=== PATIENT | female | born 1960 | race Caucasian/White ===

== ENCOUNTER 2017-07-19 09:58 | Emergency (ER) | payer BC, SELFPAY ==
[2017-07-19 09:59] VITALS: BP 133/81; PULSE 77; RESP 16; TEMP 36.7; O2SAT 100; BMI 21.7
--- NOTE | 2017-07-19 10:10 | RAD_ITS ---
STUDY: X-RAY - PELVIS AND LEFT HIP REASON FOR EXAM: Female, 57 years old. Fall, pain TECHNIQUE: Radiological exam, hip, unilateral, with pelvis when performed; 2 or 3 views. COMPARISON: None. FINDINGS: There is a non-specific bowel gas pattern. Normal visualized soft tissue structures. Normal bilateral iliac wings, sacroiliac joints and visualized sacrum. Normal bilateral superior and inferior pubic rami. Normal pubic symphysis. Normal bilateral ischial tuberosities. Normal visualized femoral head. Normal acetabulum. Normal hip joint. RAD/Hip 2-3 Views with Pelvis IMPRESSION: Normal x-ray examination of the pelvis and hip. No fracture or dislocation. Electronically Signed: Christopher Angela DO at 10:35 EDT , Service support ,
--- NOTE | 2017-07-19 10:10 | CT_ITS ---
STUDY: CT BRAIN WITHOUT CONTRAST REASON FOR EXAM: Female, 57 years old. Fall, headache RADIATION DOSAGE (If Supplied By Facility): CTDIvol = ( 44.99 ) mGy, DLP = ( 779.24 ) mGycm TECHNIQUE: Transaxial CT imaging of the brain was performed without administration of intravenous contrast material. Coronal and sagittal images are reformatted. Individualized dose optimization techniques were used for this CT. COMPARISON: None. FINDINGS: Normal soft tissue structures. Normal calvarium. Normal size ventricles and extra-axial spaces for the patient's age. Normal white matter tracts of the cerebral hemispheres. Normal basal ganglia and thalami. Normal brainstem. Normal cerebellum. There is no intracranial hemorrhage. There are no findings of an acute ischemic infarction. Normal visualized paranasal sinuses. CT/Brain/Head without Contrast IMPRESSION: Normal unenhanced CT scan of the brain. No acute intracranial process. Electronically Signed: Christopher Angela DO at 10:41 EDT , Service support ,
--- NOTE | 2017-07-19 10:11 | CT_ITS ---
STUDY: CT CERVICAL SPINE WITHOUT CONTRAST REASON FOR EXAM: Female, 57 years old. Fall RADIATION DOSAGE (If Supplied By Facility): CTDIvol = ( 14.67 ) mGy, DLP = ( 359.99 ) mGycm TECHNIQUE: High resolution transaxial imaging was performed without contrast material. Sagittal and coronal images were reconstructed. Individualized dose optimization techniques were used for this CT. COMPARISON: None FINDINGS: Normal craniovertebral junction. Normal anterior atlantoaxial articulation. Normal odontoid process. Normal cervical lordosis. Normal vertebral bodies and posterior osseous elements. C2-3: Normal endplates. Normal disc height and morphology. Normal central canal and intervertebral neuroforamina. C3-4: Normal endplates. Normal disc height and morphology. Normal central canal and intervertebral neuroforamina. C4-5: Normal endplates. Normal disc height and morphology. Normal central canal and intervertebral neuroforamina. C5-6: Normal endplates. Normal disc height and morphology. Normal central canal and intervertebral neuroforamina. C6-7: Normal endplates. Normal disc height and morphology. Normal central canal and intervertebral neuroforamina. C7-T1: Normal endplates. Normal disc height and morphology. Normal central canal and intervertebral neuroforamina. Normal visualized soft tissue structures. CT/Spine Cervical without Contras IMPRESSION: Normal unenhanced CT examination of the cervical spine. No fracture. Electronically Signed: Christopher Angela DO at 10:42 EDT , Service support ,
--- NOTE | 2017-07-19 10:11 | VDLE_ITS ---
Reason For Study: LLE EDEMA RIGHT LEFT CFV is compressible, spontaneous, phasic, GSV is normal. competent and demonstrates normal CFV is compressible, spontaneous, phasic, augmentation. competent, and demonstrates normal Procedure augmentation. Exam performed portable in ED. FV is compressible, spontaneous, phasic, The exam was diagnostic. competent and demonstrates normal A preliminary report was called and/or faxed augmentation. to Dr. Montes De Oca & ED @ 11:00 am. POP V is compressible, spontaneous, phasic, competent and demonstrates normal augmentation. T/P Trunk is compressible. PTV is compressible. LT PerV is compressible. Interpretation Summary There is no evidence of left lower extremity deep vein thrombosis. Left greater saphenous vein appears patent and compressible segmentally. Normal flow patterns right common femoral vein. Ordering Physician: Sharath Moran Referring Physician: ABI Mathis M.D. Performed By: Ioana Benavides RDCS, RVT
--- NOTE | 2017-07-19 11:17 | ED.DCSUM_ITS ---
- ER Visit Summary Date of Service: 07/19/17 Chief Complaint: She presents with headache for 2 weeks since she fell getting out of her hot tub while wrapped in a towel and basically landed on her left side. She had the left side of her head on the ground. She did not lose consciousness. She has had mild left-sided headache since that time and mild left-sided neck pain. She developed significant ecchymosis of her left hip and was worried about a blood clot. She has had occasional left chest wall discomfort with certain movements or with palpation and she believes this is from where her elbow struck her left chest wall. No exertional chest pain, dyspnea, or diaphoresis. No pleuritic chest pain. Calf pain or swelling. History of Present Illness: The patient is a 57 F [] Physical Examination: He has periorbital ecchymosis on the left but no bony tenderness or instability on palpation of her facial bones. No crepitus. No pain with eye movement. No entrapment. Vision is normal. Minimal paraspinal tenderness on the left cervical region but no midline tenderness. She still has full range of motion. Heart tones are regular and without murmur. Lungs are clear bilaterally with good air movement. Minimal chest wall tenderness on the left but overlying skin looks normal. No abdominal tenderness and specifically no left upper quadrant tenderness. No back tenderness on palpation. She did strike her left elbow on the ground as well but she has no bony tenderness there and still has full range of motion. She has significant ecchymosis over the left hip extending to the mid thigh laterally but her compartments are soft. No ecchymosis distal to the knee. No tenderness along the medial lower extremity or tenderness along the venous system. No palpable cords. Strong distal pulses. Test Results: Emergency Department Course and Treatment: CT head and cervical spine both negative for acute process. Left hip plain films negative for acute fracture. She can walk without difficulty. I do not suspect occult hip fracture and do not feel that she needs an MRI or CT scan at this time. She was concerned about DVT in her left leg because of the swelling and ecchymosis. An ultrasound was negative for DVT. She has no chest pain or tachycardia but she does have mild tenderness on the left ribs laterally. The skin is intact. No ecchymosis. Her lungs are perfectly clear all the way into the apices. I do not suspect pneumothorax or displaced rib fracture at this time. She states that she had her elbow tucked against her chest when she fell and she believes that she bruised her chest wall. We discussed obtaining chest imaging however her lungs are quite clear and she has only minimal tenderness so I do not feel this is indicated at this time. She has a pulse ox of 100% and I think the likelihood of a pneumonia, pulmonary contusion, or pulmonary embolus is extremely low. She will continue to use ice on her periorbital ecchymosis and on her left hip as well. She will follow-up if not improving. Treatment Plan: Use ice and Tylenol for pain, follow-up if not improving Disposition: Home in stable condition Impression: Initial encounter left facial contusion/periorbital ecchymosis, initial encounter cervical sprain, initial encounter left elbow contusion, initial encounter left hip contusion, initial encounter left lower extremity hematoma This note was generated with [employer] dictation software. It may contain incorrect words, spelling, and punctuation that were not noted in review of the chart prior to signing ED Disposition - Plan for ED Patient: Chief Complaint: Headache Instructions: ED Mechanical Fall, ED Contusion Face, ED Contusion Hip, ED Contusion Chest Wall Referrals: Gianfranco Mathis III, MD [Primary Care Provider] -
[2017-07-19 11:19] VITALS: BP 128/70; PULSE 75; RESP 14; O2SAT 99
== END 2017-07-19 11:36 | disposition home or self-care (01) ==
PROVIDERS: Emergency Provider Emergency Medicine; Family Provider Family Medicine; PCP Family Medicine
DX: S00.12XA Contusion of left eyelid and periocular area, initial encounter (principal); S50.02XA Contusion of left elbow, initial encounter; S70.02XA Contusion of left hip, initial encounter; S80.12XA Contusion of left lower leg, initial encounter; S13.9XXA Sprain of joints and ligaments of unspecified parts of neck, initial encounter; W18.30XA Fall on same level, unspecified, initial encounter; Y93.01 Activity, walking, marching and hiking; Y92.008 Other place in unspecified non-institutional (private) residence as the place of occurrence of the external cause; Y99.8 Other external cause status
CPT/HCPCS: 70450; 72125; 73502; 93971; 99282

== ENCOUNTER → 2017-10-17 12:33 | Outpatient (CLI) | payer BC, SELFPAY ==
--- NOTE | 2017-10-17 12:36 | BI_ITS ---
MAMMOGRAPHY - BILATERAL SCREENING REASON FOR EXAM: Female, 57 years old. Routine annual screening examination. PERTINENT HISTORY: Non-contributory. Remote right stereotactic biopsy. TECHNIQUE: Digital bilateral breast aleksandra (3D mammographic acquisition) in the CC and MLO projections. 2-D mediolateral oblique (MLO) and craniocaudad (CC) views of both breasts were obtained. CAD: Full Field Digital Mammography with Computer Added Detection was performed. COMPARISON: Comparison is made with prior abdomen examination dated September 04, 2016. FINDINGS: Breast Composition: The breasts are extremely dense, which lowers the sensitivity of mammography. There are no dominant masses or suspicious calcifications. Stable benign-appearing right axillary lymph node. A tissue clip marker from prior biopsy is seen in the upper midportion of the right breast. No other significant abnormalities are identified. There has been no significant change since the prior study. BI/SCREENING MAMM (CAD), BILAT IMPRESSION: Stable bilateral screening mammogram. Yearly follow-up mammogram recommended. (A) ASSESSMENT CATEGORY: BIRADS Category 2: Benign. A letter regarding these results will be sent to the patient by the facility within 30 days. Approximately 10% of breast cancers are not detected by mammography. A normal mammogram should not delay biopsy of a clinically suspicious abnormality. [id number] Electronically Signed: Xavi Pina MD at 13:41 EDT Tel [phone], Service support ,
== END ==
PROVIDERS: Family Provider Family Medicine; PCP Family Medicine; Visit Provider Obstetrics & Gynecology
DX: Z12.31 Encounter for screening mammogram for malignant neoplasm of breast (principal)
CPT/HCPCS: 77063; 77067

== ENCOUNTER → 2019-01-07 | Outpatient (CLI) | payer BC, SELFPAY ==
--- NOTE | 2019-01-07 17:22 | BI_ITS ---
MAMMOGRAPHY - BILATERAL SCREENING REASON FOR EXAM: Female, 58 years old. Routine annual screening examination. PERTINENT HISTORY: Non-contributory. Remote right stereotactic breast biopsy. TECHNIQUE: Digital bilateral breast emilia (3D mammographic acquisition) in the CC and MLO projections. 2-D mediolateral oblique (MLO) and craniocaudad (CC) views of both breasts were obtained. CAD: Full Field Digital Mammography with Computer Added Detection was performed. COMPARISON: Comparison is made with prior study dated October 17, 2017 and September 04, 2016. FINDINGS: Breast Composition: The breasts are extremely dense, which lowers the sensitivity of mammography. There are no dominant masses or suspicious calcifications. A tissue clip marker is once again seen in the upper midportion of the right breast. No other significant abnormalities are identified. There has been no significant change since the prior study. BI/SCREEN MAMM (CAD) W/EMILIA BILAT IMPRESSION: Stable bilateral screening mammogram. Yearly follow-up mammogram recommended. (A) ASSESSMENT CATEGORY: BIRADS Category 2: Benign. A letter regarding these results will be sent to the patient by the facility within 30 days. Approximately 10% of breast cancers are not detected by mammography. A normal mammogram should not delay biopsy of a clinically suspicious abnormality. [id number] Electronically Signed: Xavi Pina, at 8:46 EDT , Service support ,
== END | disposition home or self-care (01) ==
LOC: OPBI 01-08 07:40
PROVIDERS: Family Provider Family Medicine; PCP Family Medicine; Referring Provider Obstetrics & Gynecology; Visit Provider Obstetrics & Gynecology
DX: Z12.31 Encounter for screening mammogram for malignant neoplasm of breast (principal)
CPT/HCPCS: 77063; 77067

== ENCOUNTER → 2019-11-23 | Outpatient (CLI) | payer BC, SELFPAY ==
[2019-11-23 13:33] VITALS: BMI 21.6
[2019-11-28 01:17] LABS: HPV APTIMA, High Risk Negative (Negative)
== END | disposition home or self-care (01) ==
LOC: LABSPEC 17:07
PROVIDERS: PCP Family Medicine; Referring Provider Nurse Practitioner Women's Health; Visit Provider Nurse Practitioner Women's Health
DX: Z12.4 Encounter for screening for malignant neoplasm of cervix (principal)
CPT/HCPCS: 87624; 88175; G0145

== ENCOUNTER → 2019-12-01 | Outpatient (CLI) | payer BC, SELFPAY ==
[2019-11-23 13:33] VITALS: BMI 21.6
--- NOTE | 2019-12-01 13:20 | US_ITS ---
STUDY: ULTRASOUND BREAST - RIGHT REASON FOR EXAM: Female, 59 years old. PALPABLE LUMP RIGHT BREAST TECHNIQUE: Axial and longitudinal images of the RIGHT breast were performed with a high resolution ultrasound transducer. # OF IMAGES: 13 COMPARISON: None. FINDINGS: RIGHT Breast: There is a lesion #1 in the upper Outer quadrant. The lesion measures 8 x 4003 mm in size. Clock notation: 12 o''clock position. Distance from nipple: 2 cm. Posterior Enhancement: No. Posterior Shadowing: None. Margins: Sharp and smooth. Echogenicity: Hypoechoic. Compression effect on Shape: No change. US/Breast Limited Unilateral IMPRESSION: Probably benign lesion fibroadenoma. Follow-up in 6 months is recommended. ASSESSMENT CATEGORY: BIRADS Category 3: Probably Benign - Short-Interval Follow-up Suggested. A letter regarding these results will be sent to the patient by the facility within 30 days. Electronically Signed: Tianna Darling, at 13:07 EDT Tel , Service support ,
--- NOTE | 2019-12-01 13:20 | BI_ITS ---
MAMMOGRAPHY - BILATERAL DIAGNOSTIC REASON FOR EXAM: Female, 59 years old. BILAT DX FOR RT LUMP PER DR X 1 WK - NO FAM HX - RT STEREO BX EARLY 1999''S - RT BX IN SURGEONS OFFICE - RT LUMP 1-2:00 NEAR AREOLA PER OFFICE NOTE PERTINENT HISTORY: RT STEREO BX EARLY 1999'S - RT BX IN SURGEONS OFFICE - RT LUMP 1-2:00 NEAR AREOLA PER OFFICE NOTE TECHNIQUE: Digital bilateral breast aleksandra (3D mammographic acquisition) in the CC and MLO projections. 2-D mediolateral oblique (MLO) and craniocaudad (CC) views of both breasts were obtained. CAD: Full Field Digital Mammography with Computer Added Detection was performed. COMPARISON: None. FINDINGS: Breast Composition: The breasts are extremely dense, which lowers the sensitivity of mammography. There are no dominant masses or suspicious calcifications. No other significant abnormalities are identified. BI/DIAG MAMM W/CAD, BILAT IMPRESSION: Further ultrasonographic evaluation recommended, as described above. (I) ASSESSMENT CATEGORY: BIRADS Category 0: Incomplete. Need additional imaging evaluation. A letter regarding these results will be sent to the patient by the facility within 30 days. Approximately 10% of breast cancers are not detected by mammography. A normal mammogram should not delay biopsy of a clinically suspicious abnormality. Electronically Signed: Tianna Darling, at 14:14 EDT Tel , Service support ,
== END | disposition home or self-care (01) ==
PROVIDERS: PCP Family Medicine; Referring Provider Nurse Practitioner Women's Health; Visit Provider Nurse Practitioner Women's Health
DX: N63.10 Unspecified lump in the right breast, unspecified quadrant (principal)
CPT/HCPCS: 76642; 77062; 77066; G0279

== ENCOUNTER 2021-06-13 07:05 | Outpatient (CLI) | payer BC, SELFPAY ==
--- NOTE | 2021-06-13 08:17 | BI_ITS ---
MAMMOGRAPHY - BILATERAL SCREENING REASON FOR EXAM: Female, 61 years old. Routine annual screening examination. PERTINENT HISTORY: Non-contributory. History of prior right stereotactic breast biopsy. TECHNIQUE: Digital bilateral breast emilia (3D mammographic acquisition) in the CC and MLO projections. 2-D mediolateral oblique (MLO) and craniocaudad (CC) views of both breasts were obtained. CAD: Full Field Digital Mammography with Computer Added Detection was performed. COMPARISON: Comparison is made with prior study 12/01/2019 and 01/07/2019. FINDINGS: Breast Composition: The breasts are extremely dense, which lowers the sensitivity of mammography. There are no dominant masses or suspicious calcifications. The patient likely seen in the slightly upper medial aspect of the right breast. No other significant abnormalities are identified. There has been no significant change since the prior study. BI/SCRN MAMM (CAD)W/EMILIA BILAT IMPRESSION: Stable bilateral screening mammogram. Yearly follow-up mammogram recommended. (A) ASSESSMENT CATEGORY: BIRADS Category 2: Benign. A letter regarding these results will be sent to the patient by the facility within 30 days. Approximately 10% of breast cancers are not detected by mammography. A normal mammogram should not delay biopsy of a clinically suspicious abnormality. [id number] Electronically Signed: Xavi Pina MD at 8:44 EST ,
== END 2021-06-13 23:59 | disposition home or self-care (01) ==
LOC: OPBI 07:06
PROVIDERS: Referring Provider Nurse Practitioner Women's Health; Visit Provider Nurse Practitioner Women's Health
DX: Z12.31 Encounter for screening mammogram for malignant neoplasm of breast (principal)
CPT/HCPCS: 77063; 77067

== ENCOUNTER → 2022-07-19 | Outpatient (CLI) | payer BC, SELFPAY ==
--- NOTE | 2022-07-19 09:10 | BI_ITS ---
MAMMOGRAPHY - BILATERAL SCREENING REASON FOR EXAM: Female, 62 years old. Routine annual screening examination. PERTINENT HISTORY: Non-contributory. Remote right stereotactic breast biopsy. TECHNIQUE: Digital bilateral breast emilia (3D mammographic acquisition) in the CC and MLO projections. 2-D mediolateral oblique (MLO) and craniocaudad (CC) views of both breasts were obtained. CAD: Full Field Digital Mammography with Computer Added Detection was performed. COMPARISON: Comparison is made with prior examination of June 13, 2021 and December 01, 2019. FINDINGS: Breast Composition: The breasts are extremely dense, which lowers the sensitivity of mammography. There are no dominant masses or suspicious calcifications. A tissue clip marker is seen in the upper central portion of the right breast. No other significant abnormalities are identified. There has been no significant change since the prior study. BI/SCRN MAMM (CAD)W/EMILIA BILAT IMPRESSION: Stable bilateral screening mammogram. Yearly follow-up mammogram recommended. (A) ASSESSMENT CATEGORY: BIRADS Category 2: Benign. A letter regarding these results will be sent to the patient by the facility within 30 days. Approximately 10% of breast cancers are not detected by mammography. A normal mammogram should not delay biopsy of a clinically suspicious abnormality. [id number] Electronically Signed: Xavi Pina MD at 10:40 EDT ,
== END | disposition home or self-care (01) ==
PROVIDERS: Referring Provider Obstetrics & Gynecology; Visit Provider Obstetrics & Gynecology
DX: Z12.31 Encounter for screening mammogram for malignant neoplasm of breast (principal)
CPT/HCPCS: 77063; 77067

== ENCOUNTER → 2023-07-29 | Outpatient (CLI) | payer BC, SELFPAY ==
--- NOTE | 2023-07-29 12:28 | BI_ITS ---
MAMMOGRAPHY - BILATERAL SCREENING REASON FOR EXAM: Female, 63 years old. Routine annual screening examination. PERTINENT HISTORY: Non-contributory. History of prior right stereotactic breast biopsy. TECHNIQUE: Digital bilateral breast emilia (3D mammographic acquisition) in the CC and MLO projections. 2-D mediolateral oblique (MLO) and craniocaudad (CC) views of both breasts were obtained. CAD: Full Field Digital Mammography with Computer Added Detection was performed. COMPARISON: Comparison is made with prior study dated July 19, 2022 and June 13, 2021. FINDINGS: Breast Composition: The breasts are extremely dense, which lowers the sensitivity of mammography. There are no dominant masses or suspicious calcifications. A tissue clip marker is seen in the upper central portion of the right breast. No other significant abnormalities are identified. There has been no significant change since the prior study. BI/SCRN MAMM (CAD)W/EMILIA BILAT IMPRESSION: Stable bilateral screening mammogram. Yearly follow-up mammogram recommended. (A) ASSESSMENT CATEGORY: BIRADS Category 2: Benign. A letter regarding these results will be sent to the patient by the facility within 30 days. Approximately 10% of breast cancers are not detected by mammography. A normal mammogram should not delay biopsy of a clinically suspicious abnormality. [id number] Electronically Signed: Xavi Pina MD at 13:23 EDT ,
== END | disposition home or self-care (01) ==
LOC: OPBI 12:26
PROVIDERS: PCP Nurse Practitioner Family; Referring Provider Obstetrics & Gynecology; Visit Provider Obstetrics & Gynecology
DX: Z12.31 Encounter for screening mammogram for malignant neoplasm of breast (principal)
CPT/HCPCS: 77063; 77067

== ENCOUNTER → 2024-08-17 | Outpatient (CLI) | payer BC, SELFPAY ==
[2024-08-20 13:08] LABS: HPV APTIMA, High Risk Negative (Negative)
== END | disposition home or self-care (01) ==
LOC: LABSPEC 16:50
PROVIDERS: PCP Nurse Practitioner Family; Referring Provider Obstetrics & Gynecology; Visit Provider Obstetrics & Gynecology
DX: Z12.4 Encounter for screening for malignant neoplasm of cervix (principal)
CPT/HCPCS: 87624; 88175; G0145

== ENCOUNTER 2024-09-07 07:05 | Day surgery (SDC) | payer BC, SELFPAY ==
[2024-09-07] VITALS (7 sets, daily range): BP systolic 98–118; BP diastolic 63–82; PULSE 65–77; RESP 14–16; TEMP 36.3–36.6; O2SAT 98–100; BMI 21.2
[2024-09-07] MEDS: Lactated Ringers 1,000 ML 15 ML IV (07:23)
--- NOTE | 2024-09-07 08:00 | H&P.OPEN ---
HPI - General HPI Narrative FLORA PANTOJA, is a 64 F who presents for screening colonoscopy. Her last colonoscopy was 12 years ago. She denies abdominal pain or blood in the stool. No family history of colon cancer. [facility] Medical History (Updated 09/07/24 @ 08:[address] Ar Fields MD) Post-menopausal Non-smoker Abnormal ultrasound of breast Fibroadenoma of right breast Home Medications ?Medication ?Instructions ?Recorded ?Last Taken ?Type biotin 5 mg capsule 5 mg PO DAILY 12/22/19 Unknown History multivitamin 1 tab PO DAILY 12/22/19 Unknown History Allergy/AdvReac Type Severity Reaction Status Date / Time No Known Allergies Allergy Verified 09/07/24 07:21 Family History Father Heart disease Surgical History S/P fine needle aspiration H/O right breast biopsy H/O colonoscopy S/P LASIK surgery Social History Smoking Status: Never smoker alcohol intake: current details: social substance use type: does not use caffeine: No what type of physical activity do you participate in: additional details: adán frequency: 1-2 times per week seatbelt use: always do you feel safe at home: Yes additional social history: [employer] Patient works at [employer] Past Medical/Surgical History Planned Operation Planned Operative Procedure(s): CSCOPE OA Respiratory Do You Snore Loudly (louder than talking or can be heard): No Do You Often Feel Tired/ Fatigued/ Sleepy Dring Daytime?: No Has Anyone Observed You Stop Breathing During Sleep?: No Result (for STOP score): Negative Smoking Status: Never smoker Reproduction : No Miscellaneous Recent Exposure to Contagious Disease: No Allergies No Known Allergies Allergy (Verified 09/07/24 07:21) Discharge Is Pt Admitted From a Senior Living, or a Fdc: No After D/C, Where Do you Plan to Go: Return Home Vital Signs Vital Signs Vital Signs: 09/07/24 07:29 09/07/24 07:29 Temperature 98 F Temperature Source Temporal Pulse Rate 75 Respiratory Rate 16 Respiratory Pattern Normal Blood Pressure 118/82 H Blood Pressure Mean 94 Blood Pressure Source Monitor Blood Pressure Position Semi-Fowlers Blood Pressure Location Right Arm Pulse Ox 100 Oxygen Delivery Method Room Air Weight Weight: 131 lb 13.383 oz Body Mass Index (BMI) 21.2 Physical Exam Const alert and oriented x3 HEENT normocephalic Eyes PERRL Resp normal respiratory effort and normal air movement Cardio regular rate and regular rhythm GI soft to palpation, non-tender and non-distended Extremity normal to inspection Assessment & Plan Assessment/Plan (1) Screen for colon cancer: PLAN: I explained endoscopy in detail to the patient. I explained the risks including but not limited to stroke or heart attack with anesthesia, perforation of the GI tract, bleeding, infection. I explained that any of these could necessitate further emergency surgery. The patient understands and all questions were answered sufficiently. The patient wishes to proceed with procedure. Ar Fields MD Pager: [facility] [address] [place] [address], [address] [place] [address] Office: Surgery Risks - Colonoscopy Risks Include but are not Limited To: Risks include but are not limited to: Bleeding, perforation requiring further surgery, inability to complete colonoscopy requiring barium enema.
--- NOTE | 2024-09-07 08:12 | PCM.PRE.AN2 ---
ASA Classification* ASA Classification ASA Classification: 2 Assessment & Plan Anesthesia* Anesthesia Assessment Anesthesia Assessment: Discussed sedation and/or anesthesia options, risks, benefits, and alternatives with patient/parents/legal guardian/POA. Questions invited. The patient/parents/legal guardian/POA seems to understand and agrees to proceed with anesthesia plan. Reviewed the physical assessment, medical history, allergy history and patient home medications list prior to surgery/procedure/anesthetic and documented any changes. Performed airway and anesthesia risk assessments. 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 When Was Last Pacemaker Check QUESTION #4 FULL TEXT: You/Your Family Experience fever (hyperthermia) with Anesthesia Last Oral Intake Last Oral intake: Last Oral Intake NPO since 00:00 09/07/24 07:29 Meds taken in AM with sips of water? 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 Female Yes 09/02/24 12:52 HX of Motion Sickness No 09/02/24 12:52 HX of N/V After Surgery No 09/02/24 12:52 Non-Smoker Yes 09/02/24 12:52 Duration of Surgery greater No 09/02/24 12:52 than 60 minutes Number of Risk Factors 2 09/02/24 12:52 PONV Score Moderate Risk 09/02/24 12:52 Height & Weight Height & Weight: Anesthesia: Height & Weight Height 5 ft 6 in 09/07/24 07:29 Weight: 59.8 kg 09/07/24 07:29 Body Mass Index (BMI) 21.2 09/07/24 07:29 Respiratory Assessment Respiratory Assessment - patrol police sergeant: Respiratory Tract Infection Hx - patrol police sergeant Hx Respiratory Tract Infection No 09/02/24 12:52 STOP Sleep Apnea STOP Sleep Apnea - patrol police sergeant: STOP Sleep Apnea - patrol police sergeant Hx Hypertension No 09/02/24 12:52 Hx Sleep Apnea No 09/02/24 12:52 CPAP BIPAP Do you snore loudly (louder No 09/07/24 08:00 than talking or can be heard Do you often feel tired/ No 09/07/24 08:00 fatigued/ sleepy during daytime? Has anyone observed you stop No 09/07/24 08:00 breathing during sleep? STOP Results Negative 09/07/24 08:00 QUESTION #5 FULL TEXT : Do you snore loudly (louder than talking or can be heard through closed doors)? 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 Specify any problems Hx of Preganancy in last 3 No 09/02/24 12:52 Months Nurse Filling Out Transfusion DSCHRIBER 09/02/24 12:52 & Questions: Date: 09/02/24 09/02/24 12:52 Time: 12:53 09/02/24 12:52 Patient unable to answer at this time (ie. confused, unrespo /Reproduction History /Reproductive History - patrol police sergeant: /Reproductive Hx- patrol police sergeant Hx Now No 09/07/24 08:00 Gestational Age (in weeks): EDC: Hx Hx Para Hx Section SAB No 09/02/24 12:52 Active Medications Active Medications: Current Medications Generic Name Dose Route Start Last Admin Trade Name Freq PRN Reason Stop Dose Admin Lactated Ringer's 1,000 mls @ 15 mls/hr 09/07/24 07:15 09/07/24 07:23 IV 15 mls/hr .Q48H ANTONELLA Administration PFSH Medical History Post-menopausal Non-smoker Abnormal ultrasound of breast Fibroadenoma of right breast Home Medications ?Medication ?Instructions ?Recorded ?Last Taken ?Type biotin 5 mg capsule 5 mg PO DAILY 12/22/19 Unknown History multivitamin 1 tab PO DAILY 12/22/19 Unknown History Allergy/AdvReac Type Severity Reaction Status Date / Time No Known Allergies Allergy Verified 09/07/24 07:21 Family History Father Heart disease Surgical History S/P fine needle aspiration H/O right breast biopsy H/O colonoscopy S/P LASIK surgery Social History Smoking Status: Never smoker alcohol intake: current details: social substance use type: does not use caffeine: No what type of physical activity do you participate in: additional details: adán frequency: 1-2 times per week seatbelt use: always do you feel safe at home: Yes additional social history: Maldon[employer]- Fought Signs Patient works at [employer] Review of Systems (Anesthesia) ROS Narrative System reviewed and no additional complaints, except as documented.
--- NOTE | 2024-09-07 08:14 | PCM.PRE.AN2 ---
Assessment & Plan Anesthesia* Anesthesia Assessment Anesthesia Assessment: Discussed sedation and/or anesthesia options, risks, benefits, and alternatives with patient/parents/legal guardian/POA. Questions invited. The patient/parents/legal guardian/POA seems to understand and agrees to proceed with anesthesia plan. Reviewed the physical assessment, medical history, allergy history and patient home medications list prior to surgery/procedure/anesthetic and documented any changes. Performed airway and anesthesia risk assessments. 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 When Was Last Pacemaker Check QUESTION #4 FULL TEXT: You/Your Family Experience fever (hyperthermia) with Anesthesia Last Oral Intake Last Oral intake: Last Oral Intake NPO since 00:00 09/07/24 07:29 Meds taken in AM with sips of water? Meds patient instructed to take am of surgery PONV PONV - supervisor calibration: PONV - supervisor calibration Female Yes 09/02/24 12:52 HX of Motion Sickness No 09/02/24 12:52 HX of N/V After Surgery No 09/02/24 12:52 Non-Smoker Yes 09/02/24 12:52 Duration of Surgery greater No 09/02/24 12:52 than 60 minutes Number of Risk Factors 2 09/02/24 12:52 PONV Score Moderate Risk 09/02/24 12:52 Height & Weight Height & Weight: Anesthesia: Height & Weight Height 5 ft 6 in 09/07/24 07:29 Weight: 59.8 kg 09/07/24 07:29 Body Mass Index (BMI) 21.2 09/07/24 07:29 Respiratory Assessment Respiratory Assessment - supervisor calibration: Respiratory Tract Infection Hx - supervisor calibration Hx Respiratory Tract Infection No 09/02/24 12:52 STOP Sleep Apnea STOP Sleep Apnea - supervisor calibration: STOP Sleep Apnea - supervisor calibration Hx Hypertension No 09/02/24 12:52 Hx Sleep Apnea No 09/02/24 12:52 CPAP BIPAP Do you snore loudly (louder No 09/07/24 08:00 than talking or can be heard Do you often feel tired/ No 09/07/24 08:00 fatigued/ sleepy during daytime? Has anyone observed you stop No 09/07/24 08:00 breathing during sleep? STOP Results Negative 09/07/24 08:00 QUESTION #5 FULL TEXT : Do you snore loudly (louder than talking or can be heard through closed doors)? 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 Specify any problems Hx of Preganancy in last 3 No 09/02/24 12:52 Months Nurse Filling Out Transfusion DSCHRIBER 09/02/24 12:52 & Questions: Date: 09/02/24 09/02/24 12:52 Time: 12:53 09/02/24 12:52 Patient unable to answer at this time (ie. confused, unrespo /Reproduction History /Reproductive History - supervisor calibration: /Reproductive Hx- supervisor calibration Hx Now No 09/07/24 08:00 Gestational Age (in weeks): EDC: Hx Hx Para Hx Section SAB No 09/02/24 12:52 Active Medications Active Medications: Current Medications Generic Name Dose Route Start Last Admin Trade Name Freq PRN Reason Stop Dose Admin Lactated Ringer's 1,000 mls @ 15 mls/hr 09/07/24 07:15 09/07/24 07:23 IV 15 mls/hr .Q48H ANTONELLA Administration PFSH Medical History Post-menopausal Non-smoker Abnormal ultrasound of breast Fibroadenoma of right breast Home Medications ?Medication ?Instructions ?Recorded ?Last Taken ?Type biotin 5 mg capsule 5 mg PO DAILY 12/22/19 Unknown History multivitamin 1 tab PO DAILY 12/22/19 Unknown History Allergy/AdvReac Type Severity Reaction Status Date / Time No Known Allergies Allergy Verified 09/07/24 07:21 Family History Father Heart disease Surgical History S/P fine needle aspiration H/O right breast biopsy H/O colonoscopy S/P LASIK surgery Social History Smoking Status: Never smoker alcohol intake: current details: social substance use type: does not use caffeine: No what type of physical activity do you participate in: additional details: adán frequency: 1-2 times per week seatbelt use: always do you feel safe at home: Yes additional social history: [employer]- Fought Signs Patient works at [employer] Review of Systems (Anesthesia) ROS Narrative System reviewed and no additional complaints, except as documented.
--- NOTE | 2024-09-07 08:42 | OP.COLON_ITS ---
Patient Name: Olga Mortensen Procedure Date: 09/07/2024 8:04 AM Date of : 1960 Age: 64 Procedure: Colonoscopy Indications: Screening for colorectal malignant neoplasm Providers: Ar Fields MD Medicines: Propofol per Anesthesia Patient Profile: This is a 64 year old female. Refer to note in patient chart for documentation of history and physical. Last Colonoscopy: more than 10 years ago. Complications: No immediate complications. Procedure: Pre-Anesthesia Assessment: - Prior to the procedure, a History and Physical was performed, and patient medications and allergies were reviewed. The patient's tolerance of previous anesthesia was also reviewed. The risks and benefits of the procedure and the sedation options and risks were discussed with the patient. All questions were answered, and informed consent was obtained. Prior Anticoagulants: The patient has taken no anticoagulant or antiplatelet agents. After reviewing the risks and benefits, the patient was deemed in satisfactory condition to undergo the procedure. After I obtained informed consent, the scope was passed under direct vision. Throughout the procedure, the patient's blood pressure, pulse, and oxygen saturations were monitored continuously. The Colonoscope was introduced through the anus and advanced to the cecum, identified by appendiceal orifice and ileocecal valve. The colonoscopy was performed without difficulty. The patient tolerated the procedure well. The quality of the bowel preparation was good. The ileocecal valve, appendiceal orifice, and rectum were photographed. Scope In: 8:24:55 AM Scope Out: 8:39:13 AM Total Procedure Duration Time 0 hours 14 minutes 18 seconds Findings: The entire examined colon appeared normal on direct and retroflexion views. Impression: - The entire examined colon is normal on direct and retroflexion views. - No specimens collected. Recommendation: - Discharge patient to home. - Resume previous diet. - Continue present medications. - Repeat colonoscopy in 10 years for screening purposes. Procedure Code(s): --- Professional --- 59353, Colonoscopy, flexible; diagnostic, including collection of specimen(s) by brushing or washing, when performed (separate procedure) Diagnosis Code(s): --- Professional --- Z12.11, Encounter for screening for malignant neoplasm of colon CPT copyright 2021 [employer]. All rights reserved. The codes documented in this report are preliminary and upon patrol lady review may be revised to meet current compliance requirements. Ar Fields MD 09/07/2024 8:41:34 AM This report has been signed electronically. Number of Addenda: 0 Note Initiated On: 09/07/2024 8:04 AM
--- NOTE | 2024-09-07 08:42 | OP.CCLET_ITS ---
09/07/2024 Herberth Bustamante Re : Colonoscopy procedure for Olga Mortensen Dear Alo This procedure was performed on Saturday, September 07, 2024. My impressions and recommendations are as follows: Impressions : - The entire examined colon is normal on direct and retroflexion views. - No specimens collected. Recommendations : - Discharge patient to home. - Resume previous diet. - Continue present medications. - Repeat colonoscopy in 10 years for screening purposes. My findings are described in the full procedure note, which is enclosed. If I can be of further assistance, please feel free to contact me at Doctor phone number(s): , Work: . Sincerely, Ar Fields MD 09/07/2024 8:41:34 AM This report has been signed electronically.
--- NOTE | 2024-09-07 08:49 | PCM.POST.ANE ---
Anesthesia: Postop Eval I Current Vital Signs Temperature: 97.4 F Pulse Rate: 77 Blood Pressure: 102/63 Respiratory Rate: 16 Pulse Ox: 99 Oxygen Delivery Method: Room Air Assessment Airway patent: Yes Spontaneous unlabored respirations: Yes Mental status: Awake and Calm nausea: No Vomiting: No Anesthesia Complication: No Fluid Hydration Crystalloid volume administer (ml): 600 Total IV fluid infused: 600 Progress Note Anesthesia document: Postop Eval 1 completed: Yes
--- NOTE | 2024-09-07 14:00 | PCM.POSTANE2 ---
Anesthesia Postop Eval I Sum Postop Eval Completion status Anesthesia document: Postop Eval 1 completed: Yes Anesthesia Postop Eval I Summary Anesthesia Postop Eval I Summary: Anesthesia Postop Eval I: Assessment Summary Airway patent Yes 09/07/24 08:50 [email or web address] Spontaneous unlabored Yes 09/07/24 08:50 [email or web address] respirations Mental status Awake,Calm 09/07/24 08:50 [email or web address] nausea No 09/07/24 08:50 [email or web address] Vomiting No 09/07/24 08:50 [email or web address] Anesthesia Postop Eval I: Fluid Summary Crystalloid volume administer 600 09/07/24 08:50 [email or web address] (ml) Colloids volume administered ( ml) Blood Product volume administered (ml) Total IV fluid infused 600 09/07/24 08:50 [email or web address] Anesthesia Postop Eval I: Summary Notes Anesthesia Complication No 09/07/24 08:50 [email or web address] Anesthesia Complication Comment: Post-operative progress note Anesthesia: Postop Eval II Evaluation Mental status: Awake and Calm Pain Level: 0 nausea: No Vomiting: No Complications Anesthesia Complication: No
== END 2024-09-07 09:25 | disposition home or self-care (01) ==
LOC: EN 07:05 → AC 07:06
PROVIDERS: PCP Nurse Practitioner Family; Referring Provider Nurse Practitioner Family; Visit Provider Surgery
PROC: 0DJD8ZZ Inspection of Lower Intestinal Tract, Via Natural or Artificial Opening Endoscopic (ICD-10-PCS; CPT 45378; principal; 2024-09-07 07:55)
DX: Z12.11 Encounter for screening for malignant neoplasm of colon (principal)
CPT/HCPCS: 45378; J2405

== ENCOUNTER → 2024-09-10 | Outpatient (CLI) | payer BC, SELFPAY ==
--- NOTE | 2024-09-10 12:00 | BI_ITS ---
EXAM: SCRN MAMM (CAD)W/EMILIA BILAT DATE: 09/10/2024 CLINICAL HISTORY: F, Age 64 y/o , SCREENING MAMMOGRAM No family history. Prior right stereotactic breast biopsy. BREAST CANCER RISK ASSESSMENT: Not assessed. TECHNIQUE: Bilateral screening digital breast tomosynthesis with 2D and 3D images. Computer aided detection. COMPARISON: Prior exam(s) dated July 29, 2023.. FINDINGS: TISSUE DENSITY: The breast tissue is extremely dense which lowers the sensitivity of mammography. Bilateral Breast Mammographic Findings: I suspect a 11.5 mm well-defined nodule in the slightly upper central deep portion of the left breast. Targeted sonographic correlation recommended. BI/SCRN MAMM (CAD)W/EMILIA BILAT IMPRESSION: OVERALL FINAL ASSESSMENT: BIRADS 0 Incomplete: Need additional imaging evaluati on and/or prior mammograms for comparison. RECOMMENDATION: Sonographic correlation of the questionable nodule in the right breast as descr ibed. A letter with findings and recommendations will be mailed to the patient. Reading Location: [place] [id number]
== END | disposition home or self-care (01) ==
LOC: OPBI 11:58
PROVIDERS: PCP Nurse Practitioner Family; Referring Provider Obstetrics & Gynecology; Visit Provider Obstetrics & Gynecology
DX: Z12.31 Encounter for screening mammogram for malignant neoplasm of breast (principal)
CPT/HCPCS: 77063; 77067

== ENCOUNTER → 2024-09-16 | Outpatient (CLI) | payer BC, SELFPAY ==
--- NOTE | 2024-09-16 13:30 | US_ITS ---
PROCEDURE: BREAST LIMITED UNILATERAL 09/16/2024 REASON FOR EXAM: ABN MAMM TECHNIQUE: Targeted left breast ultrasound. COMPARISON: Prior mammogram dated September 10, 2024. FINDINGS: Left breast ultrasound was targeted to the upper half of the left breast.. The upper half of the left breast was examined with ultrasound. There is dense fibroglandular tissue. In the retroareolar region of the breast, I suspect a 1.4 cm x 0.8 cm 0.3 cm benign-appearing lymph node. US/Breast Limited Unilateral IMPRESSION: Impression: Findings suggestive of a 1.4 cm x 0.8 cm x 0.3 cm benign-appearing lymph node in the retroareolar region of the breast. Birads: BI-RADS 2: BENIGN. RECOMMEND ANNUAL MAMMOGRAPHIC SCREENING. Reading Location: [place] [id number]
== END | disposition home or self-care (01) ==
PROVIDERS: PCP Nurse Practitioner Family; Referring Provider Obstetrics & Gynecology; Visit Provider Obstetrics & Gynecology
DX: N63.25 Unspecified lump in the left breast, overlapping quadrants (principal); R92.8 Other abnormal and inconclusive findings on diagnostic imaging of breast
CPT/HCPCS: 76642